=== PATIENT | male | born 1965 | race American Indian/Alaskan Native ===

== ENCOUNTER 2018-02-27 01:14 | Emergency (ER) | payer OTHER ==
[2018-02-27 01:31] VITALS: RESP 20; O2SAT 98
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
[2018-02-27 02:36] VITALS: BP 160/92; PULSE 89; TEMP 98
--- NOTE | 2018-02-27 08:29 | RAD ---
PROCEDURE: Cervical Spine Radiographs. HISTORY: Pain. COMPARISON: None. FINDINGS: BONES: There is normal alignment of the cervical vertebral bodies. There is straightening of the cervical spine with loss of normal cervical lordosis. Vertebral height is normal. Bone mineralization is normal. There is no acute fracture or traumatic anterior listhesis. The craniocervical junction is normal. The atlantoaxial joint normal. DISC SPACES: There is moderate degenerative disc disease at C5-6 and C6-7 with anterior spurring, reduced disc heights and facet arthropathy. SOFT TISSUES: Normal. No prevertebral soft tissue swelling. OTHER FINDINGS: None. IMPRESSION: No acute fracture or traumatic anterolisthesis. Moderate degenerative disc disease at C5-6 and C6-7. Straightening of the cervical spine may be positional or related to muscle spasm.
== END 2018-02-27 02:39 | disposition home or self-care (01) ==
LOC: C.ER 01:14
DX: S16.1XXA Strain of muscle, fascia and tendon at neck level, initial encounter (principal); S46.911A Strain of unspecified muscle, fascia and tendon at shoulder and upper arm level, right arm, initial encounter; V89.2XXA Person injured in unspecified motor-vehicle accident, traffic, initial encounter